=== PATIENT | male | born 1980 | race Caucasian/White ===

== ENCOUNTER 2017-05-12 09:14 | Emergency (ER) | payer OTHER ==
[~2017-05-12] VITALS: Ht 198.1 cm; Wt 131.5 kg
[2017-05-12 09:14] VITALS: BP 156/86
[2017-05-12] MEDS ORDERED: AMOX1TAB61 PO (09:40)
--- NOTE | 2017-05-12 09:40 | PHYS DOC ---
Past History Past Medical History: No Pertinent History Smoking: Non-smoker Drug Use: None Adult General Chief Complaint Chief Complaint: ANIMAL BITE HPI HPI 36 year old right-handed male patient who works at [employer] had cat bite to left thumb yesterday. The cat is in animal control custody and patient is up- to-date with his immunization. Patient states he suggested to get evaluation from his work. Patient denies fever and chills, focal neuro deficit, nausea and vomiting. Review of Systems Review of Systems Constitutional: Denies fever or chills [] Eyes: Denies change in visual acuity, redness, or eye pain [] HENT: Denies nasal congestion or sore throat [] Respiratory: Denies cough or shortness of breath [] Cardiovascular: No additional information not addressed in HPI [] GI: Denies abdominal pain, nausea, vomiting, bloody stools or diarrhea [] : Denies dysuria or hematuria [] Musculoskeletal: Denies back pain or joint pain [] Integument: Puncture wound Neurologic: Denies headache, focal weakness or sensory changes [] Endocrine: Denies polyuria or polydipsia [] All other systems were reviewed and found to be within normal limits, except as documented in this note. Physical Exam Physical Exam Constitutional: Well developed, well nourished, no acute distress, non-toxic appearance. [] HENT: Normocephalic, atraumatic, bilateral external ears normal, oropharynx moist, no oral exudates, nose normal. [] Eyes: PERRLA, EOMI, conjunctiva normal, no discharge. [] Neck: Normal range of motion, no tenderness, supple, no stridor. [] Cardiovascular:Heart rate regular rhythm, no murmur [] Lungs & Thorax: Bilateral breath sounds clear to auscultation [] Skin: Warm, dry, no erythema, no rash, left times several small puncture wound without sign of inflammation or erythema or tenderness. [] Extremities: No tenderness, no cyanosis, no clubbing, ROM intact, no edema, left thumb puncture wounds. [] Neurologic: Alert and oriented X 3, normal motor function, normal sensory function, no focal deficits noted. [] Psychologic: Affect normal, judgement normal, mood normal. [] EKG EKG [] Radiology/Procedures Radiology/Procedures [] Course & Med Decision Making Course & Med Decision Making Evaluation of patient in ER showed 36-year-old male patient with cat bite to left thumb.The cat is in custody and patient is up-to-date with his tetanus immunization. Patient had few puncture. Left thumb without sign of infection. Plan discharge patient home with prescription of Augmentin and instruction to follow up with animal control for cat condition. Dragon Disclaimer Dragon Disclaimer This electronic medical record was generated, in whole or in part, using a voice recognition dictation system. Departure Departure: Impression: Primary Impression: Cat bite of finger Disposition: HOME, SELF-CARE (At 0938) Condition: STABLE Referrals: PCP,NO (PCP) Patient Instructions: Animal Bite Additional Instructions: Follow-up with your primary care physician as needed Scripts Amoxicillin/Potassium Clav (AUGMENTIN 875-125 TABLET) 1 Each Tablet 1 TAB PO BID, #14 TAB Prov: NANDO KAMINSKI MD 05/12/17 NANDO KAMINSKI MD May 12, 2017 09:40
== END 2017-05-12 09:50 | disposition home or self-care (01) ==
LOC: ER 09:14
DX: S61.052A Open bite of left thumb without damage to nail, initial encounter (principal); W55.01XA Bitten by cat, initial encounter; Y93.89 Activity, other specified; Y99.8 Other external cause status; Y92.89 Other specified places as the place of occurrence of the external cause
CPT/HCPCS: 99283

== ENCOUNTER 2020-05-12 08:15 | Emergency (ER) | payer BC, OTHER ==
[~2020-05-12] VITALS: Ht 198.1 cm; Wt 142.8 kg
[~2020-05-12 08:15] MED LIST: AMOX1TAB61 PO
[2020-05-12 08:45] LABS: BASO % 0 % (0-3); EOS # 0.3 x10^3/uL (0.0-0.7); EOS % 3 % (0-3); HEMATOCRIT 45.2 % (39.0-53.0); HEMOGLOBIN 15.4 g/dL (13.0-17.5); LYMPH % 23 % (24-48); MEAN CORPUSCULAR HEMOGLOBIN 31 pg (25-35); MEAN CORPUSCULAR HGB CONC 34 g/dL (31-37); MEAN CORPUSCULAR VOLUME 91 fL (79-100); MONO # 0.7 x10^3/uL (0.0-1.1); MONO % 8 % (0-9); NEUT # 5.5 x10^3uL (1.8-7.7); NEUT % 65 % (31-73); PLATELET COUNT 263 x10^3/uL (140-400); RED BLOOD COUNT 4.97 x10^6/uL (4.30-5.70); RED CELL DISTRIBUTION WIDTH 13.2 % (11.5-14.5); WHITE BLOOD COUNT 8.5 x10^3/uL (4.0-11.0)
[2020-05-12] MEDS ORDERED: ASPIRIN 325 MG TABLET PO ONE (08:45)
[2020-05-12] MEDS ORDERED: IV NORMAL SALINE 1,000ML 1,000 ML IV ONE (08:45)
[2020-05-12 08:52] LABS: CALCIUM 8.8 mg/dL (8.5-10.1); CREATININE 1.1 mg/dL (0.7-1.3); GFR 74.9; POTASSIUM 4.2 mmol/L (3.5-5.1)
[2020-05-12 09:08] LABS: ALBUMIN/GLOBULIN RATIO 1.3 (1.0-1.7); MAGNESIUM 2.2 mg/dL (1.8-2.4); TOTAL BILIRUBIN 0.4 mg/dL (0.2-1.0); TOTAL PROTEIN 7.2 g/dL (6.4-8.2)
--- NOTE | 2020-05-12 09:15 | RAD ---
EXAM: CHEST 1 VIEW History: Chest pain COMPARISON: None available. TECHNIQUE: Single portable radiograph of the chest FINDINGS: The cardiac silhouette is unremarkable. The lungs are clear bilaterally. The costophrenic sulci are clear and well demarcated. IMPRESSION: No radiographic evidence of an acute cardiopulmonary process. Electronically signed by: Vinh Guerra MD (05/12/2020 9:13 AM) [id number]
--- NOTE | 2020-05-12 09:23 | PHYS DOC ---
Past History Past Medical History: Hypertension Past Surgical History: Other Additional Past Surgical Histo: SINUS SX Smoking: Non-smoker Alcohol Use: Occasionally Drug Use: None General Adult EDM: Chief Complaint: CHEST WALL PAIN HPI: HPI: Patient is a 39 year old male with a hx of HTN, who presents with chest discomfort since last night. He states yesterday he saw his PCP for a "wooshing sound" in his ears, and was started on metoprolol. He took his first dose last night at 9pm and began having this chest discomfort while laying in bed last night. He states it is an intermittent tightness that does not change with exertion. Denies any SOB, sweating, nausea or vomiting. He had a similar pain to this a few years ago, saw a handling tech and was not diagnosed with any CAD or heart failure. He does have a family history of CAD in father, sister and brother. He currently rates his pain +0/10. Review of Systems: Review of Systems: Constitutional: Denies fever or chills Eyes: Denies redness or eye pain HENT: Denies sore throat, has chronic nasal congestion Respiratory: Denies cough or shortness of breath Cardiovascular: Denies palpitations, has had chest discomfort since last night GI: Denies abdominal pain, nausea, or vomiting : Denies dysuria or hematuria Musculoskeletal: Denies back pain or joint pain Integument: Has chronic eczema Neurologic: Denies headache, focal weakness or sensory changes Complete systems were reviewed and found to be within normal limits, except as documented in this note. Current Medications: Current Meds: Current Medications Medications (Trade) Dose Ordered Sig/[facility] Start Time Stop Time Status Last Admin Dose Admin Aspirin (Fantasma Aspirin) 325 mg 1X ONCE 05/12/20 08:45 05/12/20 08:46 DC 05/12/20 08:38 325 MG Sodium Chloride 1,000 ml @ 1,000 mls/hr 1X ONCE 05/12/20 08:45 05/12/20 09:44 05/12/20 08:38 1,000 MLS/HR Allergies: Allergies: Allergies Coded Allergies Type Severity Reaction Last Updated Verified No Known Drug Allergies 05/12/17 No Physical Exam: PE: Constitutional: Well developed, well nourished, no acute distress, non-toxic appearance HENT: Normocephalic, atraumatic Eyes: PERRL, EOMI, conjunctiva normal, no discharge Neck: Normal range of motion, no tenderness, supple Lungs & Thorax: No respiratory distress, equal chest rise and fall Heart: RRR no m/r/g. No chest wall tenderness. Abdomen: Soft, no tenderness Skin: Warm, dry, no erythema, eczema on legs bilaterally Back: No tenderness, no CVA tenderness Extremities: No tenderness, ROM intact, no edema Neurologic: Alert and oriented X 3, normal motor function, normal sensory function, no focal deficits noted Psychologic: Affect normal, judgment normal Current Patient Data: Labs: Laboratory Tests Test 05/12/20 08:30 White Blood Count 8.5 x10^3/uL (4.0-11.0) Red Blood Count 4.97 x10^6/uL (4.30-5.70) Hemoglobin 15.4 g/dL (13.0-17.5) Hematocrit 45.2 % (39.0-53.0) Mean Corpuscular Volume 91 fL (79-100) Mean Corpuscular Hemoglobin 31 pg (25-35) Mean Corpuscular Hemoglobin Concent 34 g/dL (31-37) Red Cell Distribution Width 13.2 % (11.5-14.5) Platelet Count 263 x10^3/uL (140-400) Neutrophils (%) (Auto) 65 % (31-73) Lymphocytes (%) (Auto) 23 % (24-48) L Monocytes (%) (Auto) 8 % (0-9) Eosinophils (%) (Auto) 3 % (0-3) Basophils (%) (Auto) 0 % (0-3) Neutrophils # (Auto) 5.5 x10^3uL (1.8-7.7) Lymphocytes # (Auto) 2.0 x10^3/uL (1.0-4.8) Monocytes # (Auto) 0.7 x10^3/uL (0.0-1.1) Eosinophils # (Auto) 0.3 x10^3/uL (0.0-0.7) Basophils # (Auto) 0.0 x10^3/uL (0.0-0.2) Sodium Level 137 mmol/L (136-145) Potassium Level 4.2 mmol/L (3.5-5.1) Chloride Level 102 mmol/L (98-107) Carbon Dioxide Level 28 mmol/L (21-32) Anion Gap 7 (6-14) Blood Urea Nitrogen 14 mg/dL (8-26) Creatinine 1.1 mg/dL (0.7-1.3) Estimated GFR (Cockcroft-Gault) 74.9 BUN/Creatinine Ratio 13 (6-20) Glucose Level 108 mg/dL (70-99) H Calcium Level 8.8 mg/dL (8.5-10.1) Magnesium Level Pending Total Bilirubin Pending Aspartate Amino Transferase (AST) Pending Alanine Aminotransferase (ALT) Pending Alkaline Phosphatase Pending Creatine Kinase Pending Creatine Kinase MB (Mass) Pending Creatine Kinase MB Relative Index Pending ER-Ury-N-Type Natriuretic Peptide Pending Total Protein Pending Albumin Pending Albumin/Globulin Ratio Pending Lipase Pending Vital Signs: Vital Signs Date Time Temp Pulse Resp B/P (MAP) Pulse Ox O2 Delivery O2 Flow Rate FiO2 05/12/20 08:30 98.3 86 18 160/107 (124) 96 Room Air EKG: EKG: Normal sinus rhythm at [address] elevation. QRS 102, QT/QTc 370/430. [] Radiology/Procedures: Radiology/Procedures: PROCEDURE: CHEST AP ONLY EXAM: CHEST 1 VIEW History: Chest pain COMPARISON: None available. TECHNIQUE: Single portable radiograph of the chest FINDINGS: The cardiac silhouette is unremarkable. The lungs are clear bilaterally. The costophrenic sulci are clear and well demarcated. IMPRESSION: No radiographic evidence of an acute cardiopulmonary process. Electronically signed by: Vinh Guerra MD (05/12/2020 9:13 AM) [id number] Heart Score: HEART Score for Chest Pain: HEART Score for Chest Pain Response (Comments) Value History Slighlty/Non-Suspicious 0 ECG Normal 0 Age < 45 0 Risk Factors 1 or 2 Risk Factors 1 Troponin < Normal Limit 0 Total 1 Risk Factors: Risk Factors: DM, Current or recent (<one month) smoker, HTN, HLP, family history of CAD, obesity. Risk Scores: Score 0 - 3: 2.5% MACE over next 6 weeks - Discharge Home Score 4 - 6: 20.3% MACE over next 6 weeks - Admit for Clinical Observation Score 7 - 10: 72.7% MACE over next 6 weeks - Early Invasive Strategies Course & Med Decision Making: Course & Med Decision Making Pertinent Labs and Imaging studies reviewed. (See chart for details) Aung Anderson is a 39 yo male who presents today with chest pain. His pain is not exertion related, and he has no history of CAD. His ECG showed a normal sinus rhythm without any ST elevation. His Troponin was not elevated and his other labs were unremarkable. His chest xray was also normal. He was given an aspirin and since his arrival he has rated his pain a +0/10. His heart score is +1 due to risk factors (for HTN and FH), therefor he is very low risk for a MACE in the next 6 wks. Patient stable for discharge with outpatient follow-up with PCP/cardiology/GI. Cardiology and GI referrals provided. Discussed findings and plan with patient, who acknowledges understanding and agreement. Maria G Disclaimer: Dragon Disclaimer: This electronic medical record was generated, in whole or in part, using a voice recognition dictation system. Departure Departure: Impression: Primary Impression: Chest pain Qualified Codes: R07.9 - Chest pain, unspecified Disposition: 01 DC HOME SELF CARE/HOMELESS Condition: STABLE Referrals: ELIZA QUEZADA (PCP) [place] BOURNE MD, SCOTT S MD Patient Instructions: Chest Pain (Nonspecific), [id number], Gastritis, Adult, Hveo-yb-Eary Scripts Famotidine (PEPCID) 20 Mg Tablet 1 TAB PO BID for Gastritis, #40 TAB Prov: URVASHI WHALEY DO 05/12/20 PERC Rule for PE PERC Rule for PE Response (Comments) Value Age > 50: No 0 HR > 100: No 0 Sa02 on room air <95%: No 0 Unilateral leg swelling: No 0 Hemoptysis: No 0 Recent surgery or trauma: No 0 Prior PE or DVT: No 0 Hormone use: No 0 Total 0 URVASHI WHALEY DO May 12, 2020 09:23
[2020-05-12] MEDS ORDERED: FAMO-63 PO (10:22)
[2020-05-12 10:48] VITALS: BP 135/66
--- NOTE | 2020-05-12 14:02 | EKG ---
[address] [address] Test Date: 2020-05-12 Test Time: 08:29:46 Pat Name: CAIN BARONE Department: Room: Gender: M [employer]: [email or web address] : [email or web address] Requested By: URVASHI WHALEY Order Number: [id number] Reading MD: Measurements Intervals [place] Rate: 80 P: 34 [place]: 152 QRS: -6 QRSD: 102 T: 44 QT: 370 QTc: 430 Interpretive Statements SINUS RHYTHM LEFTWARD AXIS OTHERWISE NORMAL ECG RI6.02 No previous ECG available for comparison
== END 2020-05-12 10:49 | disposition home or self-care (01) ==
LOC: ER 08:15
DX: R07.89 Other chest pain (principal); R09.81 Nasal congestion; L30.9 Dermatitis, unspecified; I10 Essential (primary) hypertension
CPT/HCPCS: 36415; 71045; 80053; 82553; 83690; 83735; 83880; 84484; 85025; 85610; 85730; 93005; 96360; 99285; J7030